=== PATIENT | male | born 1980 | race Caucasian/White ===

== ENCOUNTER 2022-03-24 19:30 | Emergency (ER) | payer MEDICAID | END 2022-03-24 20:45 | disposition home or self-care (01) | LOC: JD.ED 19:30 | DX: S93.401A Sprain of unspecified ligament of right ankle, initial encounter (principal); Z79.899 Other long term (current) drug therapy; Z88.0 Allergy status to penicillin; X50.1XXA Overexertion from prolonged static or awkward postures, initial encounter | CPT/HCPCS: 29515; 73610-26-RT; 73610-RT; 99283-25 ==

== ENCOUNTER 2022-04-06 09:51 | Emergency (ER) | payer MEDICAID ==
[2022-04-06] MEDS ORDERED: Ondansetron 4 MG/2 ML SDV IVPUSH ONE (10:10)
[2022-04-06] MEDS ORDERED: Sodium Chloride 0.9% 10 ML Syringe FLUSH PRN (10:10)
[2022-04-06] MEDS ORDERED: HYDROmorphone 1 MG/ML Syringe IVPUSH ONE ×2 (10:12→11:28)
[2022-04-06] MEDS ORDERED: Sodium Chloride 0.9% 1,000 ML IV SCH (10:15)
[2022-04-06] MEDS ORDERED: Iopamidol 612 MG/ML 100 ML Bottle IVPUSH ONE (10:25)
[2022-04-06 11:18] LABS: ESTIMATED GFR 113 mL/min (<60)
[2022-04-06] MEDS ORDERED: HYDROmorphone 0.5 MG/0.5 ML Syringe IVPUSH ONE (12:50)
== END 2022-04-06 13:25 | disposition home or self-care (01) ==
LOC: JD.ED 09:51
DX: M54.50 Low back pain, unspecified (principal); N30.00 Acute cystitis without hematuria; K04.7 Periapical abscess without sinus; Z79.899 Other long term (current) drug therapy; Z88.0 Allergy status to penicillin; Z20.822 Contact with and (suspected) exposure to COVID-19
CPT/HCPCS: 36415; 71045; 74177; 80053; 80306; 81001; 83605; 83690; 84484; 85025; 86140; 87040; 87154; 87635; 96361; 96374; 96375; 96376; 99284; J1170; J2405; J3490; J7030; Q9967; 87077; 87186; U0002

== ENCOUNTER 2022-04-10 07:44 | Emergency (ER) | payer MEDICAID ==
[2022-04-10] MEDS ORDERED: Morphine 4 MG/ML Syringe IVPUSH ONE ×4 (08:18→12:39)
[2022-04-10] MEDS ORDERED: Lactated Ringers 1,000 ML IV ONE (08:18)
[2022-04-10] MEDS ORDERED: Cefepime 2 GM in Sodium Chloride 0.9% 50 ML IV ONE (09:07)
[2022-04-10] MEDS ORDERED: Ketorolac 15 MG/ML SDV IVPUSH ONE (13:39)
== END 2022-04-10 14:19 ==
LOC: SUPCPDRO 07:44 → JD.ED 07:44
DX: M54.50 Low back pain, unspecified (principal); I38 Endocarditis, valve unspecified; F17.210 Nicotine dependence, cigarettes, uncomplicated; Z88.0 Allergy status to penicillin; Z20.822 Contact with and (suspected) exposure to COVID-19
CPT/HCPCS: 36415; 71045; 80053; 81001; 82009; 83605; 83690; 84484; 85025; 85610; 86140; 87040; 87077; 87186; 87635; 93005; 96361; 96365; 96367; 96375; 96376; 99285; J0692; J1885; J2270; J3370; J7050; J7120; U0002

== ENCOUNTER 2022-05-21 23:39 | Emergency (ER) | payer MEDICAID | END 2022-05-22 02:27 | disposition left against medical advice (07) | LOC: JD.ED 23:39 | DX: Z76.5 Malingerer [conscious simulation] (principal); Z88.0 Allergy status to penicillin; Z88.8 Allergy status to other drugs, medicaments and biological substances; Z87.891 Personal history of nicotine dependence | CPT/HCPCS: 99284 ==